=== PATIENT | female | born 1960 | race African-American/Black ===

== ENCOUNTER 2020-12-01 08:23 | Outpatient (CLI) | payer OTHER ==
--- NOTE | 2020-12-01 16:08 | Fluoroscopy Report ---
ESOPHAGRAM INDICATION / CLINICAL INFORMATION: Dysphagia, pharyngoesophageal phase. TECHNIQUE: Esophagram was performed with double contrast barium and air. COMPARISON: None available. FINDINGS: MOTILITY: No significant abnormality. MUCOSA: No significant abnormality. MASS: None. STRICTURE: None. HIATAL HERNIA: None. REFLUX: Mild. BARIUM TABLET: Tablet passed into the stomach without delay. ADDITIONAL FINDINGS: None. Fluoroscopy time: 1.7 minutes. Fluoroscopy images: 14. IMPRESSION: Mild gastroesophageal reflux. Signer Name: Moise Eller MD Signed: 12/01/2020 4:03 PM Workstation Name: [id number]
== END 2020-12-01 08:24 | disposition home or self-care (01) ==
LOC: FLUORO 08:23
PROVIDERS: ATTEND Otolaryngology
DX: K21.9 Gastro-esophageal reflux disease without esophagitis (principal)
CPT/HCPCS: 74221